=== PATIENT | male | born 1960 | race Asian ===

== ENCOUNTER 2018-04-01 13:43 | Inpatient (IN) | payer MEDICARE, MEDICAID ==
[2018-04-01] MEDS ORDERED: methylPREDNISolone SS 40 mg Vial IVP STA (14:02)
[2018-04-01 14:26] LABS: % BASOPHILS 0.1 % (0.0-2.0); % EOSINOPHILS 1.9 % (0.0-5.0); % LYMPHOCYTES 20.5 % (20.0-50.0); % MONOCYTES 8.5 % (2.0-10.0); EOSINOPHILE ABSOLUTE 0.1 Th/cmm (0.1-0.4); HEMATOCRIT 39.8 % (41.0-60); HEMOGLOBIN 13.1 gm/dL (12-16); LYMPHOCYTE ABSOLUTE 1.3 Th/cmm (1.5-3.0); MEAN CELL VOLUME 89.7 fl (80-99); MEAN CORPUSCULAR HEMOGLOBIN 29.6 pg (26.0-30.0); MEAN CORPUSCULAR HGB CONC 32.9 pg (28.0-36.0); MONOCYTE ABSOLUTE 0.5 Th/cmm (0.3-1.0); NEUTROPHILE ABSOLUTE 4.4 Th/cmm (1.8-8.0); PLATELET COUNT 234 Th/cmm (150-400); RED BLOOD COUNT 4.44 Mil/cmm (4.30-5.70); RED CELL DISTRIBUTION WIDTH 15.3 % (11.5-20.0); WHITE BLOOD COUNT 6.3 Th/cmm (4.8-10.8)
--- NOTE | 2018-04-01 14:44 | Diagnostic Imaging Report ---
Left hand 3 views Indication: Cellulitis, rule out foreign body Comparison: none Findings: There is diffuse soft tissue swelling. Moderate degenerative changes are noted with subchondral cystic changes of the metacarpal heads. Old triquetral fracture is noted. No gross erosions identified. Overlying wrapping material limits the exam. No gross radiopaque foreign body identified, however assessment of the thumb was noted on this exam. Impression: No gross radiopaque foreign body identified. Assessment of the thumb was limited due to overlying wrapping material. Please correlate clinically. Diffuse soft tissue swelling which may be due to cellulitis. No gross osseous erosions. If there is concern for osteomyelitis, MRI follow-up may be obtained. Old triquetral fracture. Degenerative changes. In the setting of trauma, if clinical symptoms persist and there is continued concern for an occult fracture, follow up exams in 5-7 days is suggested.
[2018-04-01 14:45] LABS: ALBUMIN 3.3 gm/dL (4.2-5.5); ALKALINE PHOSPHATASE 45 U/L (34-104); ANION GAP 10.2 (7.0-16.0); BILIRUBIN,TOTAL 0.2 mg/dL (0.3-1.0); BUN - UREA NITROGEN 21 mg/dL (7-25); CALCIUM SERUM 8.7 mg/dL (8.6-10.3); CHLORIDE 101 mEq/L (98-107); CREATININE - SERUM 0.9 mg/dL (0.7-1.3); GFR AFRICAN-AMERICAN > 60.0 ml/min (>90); GFR NON AFRICAN-AMERICAN > 60.0 ml/min; GLUCOSE 112 mg/dL (70-105); MAGNESIUM 2.4 mg/dL (1.9-2.7); PHOSPHOROUS 4.6 mg/dL (2.5-5.0); POTASSIUM SERUM 4.2 mEq/L (3.5-5.1); SGOT 22 U/L (13-39); SGPT/ALT 41 U/L (7-52); SODIUM SERUM 137 mEq/L (136-145); TOTAL PROTEIN,SERUM 6.5 gm/dL (6.0-8.3)
--- NOTE | 2018-04-01 14:45 | ED Physician Chart ---
ED Chief Complaint/HPI - Patient Information Date Seen:: 04/01/18 Time Seen:: 13:49 Chief Complaint:: L hand swelling History of Present Illness:: L hand swelling in a patient with no h/o trauma. Also, left hand erythema. Allergies:: Allergies Allergy/AdvReac Type Severity Reaction Status Date / Time No Known Allergies Allergy Verified 04/01/18 13:49 Vitals:: Vital Signs - 8 hr 04/01/18 13:49 Temp 98.3 F HR 73 RR 21 BP 115/47 O2 Sat % 96 Historian:: Medical Records Review:: Nurse's Note Reviewed, Transfer documents Reviewed ED Review of Systems - Review of Systems General/Constitutional: No fever, No chills, No weight loss, No weakness, No diaphoresis, No edema, No loss of appetite Skin: No skin lesions, No rash, No bruising Head: No headache, No light-headedness Eyes: No loss of vision, No pain, No diplopia ENT: No earache, No nasal drainage, No sore throat, No tinnitus Neck: No neck pain, No swelling, No thyromegaly, No stiffness, No mass noted Cardio Vascular: No chest pain, No palpitations, No PND, No orthopnea, No edema Pulmonary: No SOB, No cough, No sputum, No wheezing GI: No nausea, No vomiting, No diarrhea, No pain, No melena, No hematochezia, No constipation, No hematemesis G/U: No dysuria, No frequency, No hematuria Musculoskeletal: No bone or joint pain, No back pain, No muscle pain, Other ( left hand swelling and erythema) Endocrine: No polyuria, No polydipsia Psychiatric: No prior psych history, No depression, No anxiety, No suicidal ideation Hematopoietic: No bruising, No lymphadenopathy Allergic/Immuno: No urticaria, No angioedema Neurological: No syncope, No focal symptoms, No weakness, No paresthesia, No headache, No seizure, No dizziness, No confusion, No vertigo ED Past Medical History - Past Medical History Obtainable: No Past Medical History: Dyslipidemia, Seizures, Dementia, Other (intellectual disabilities; down Syndrome.) Family Medical History - Family Member Mother History Unknown: Yes ED Physical Exam - Physical Examination General/Constitutional: Awake Other Gen/Cons comments:: moaning and shouting occasional sounds. Head: Atraumatic Other Head comments:: microcephaly Eyes: Lids, conjuctiva normal, PERRL, EOMI Skin: Nl inspection, No rash, No skin lesions, No ecchymosis, Well hydrated, No lymphadenopathy ENMT: External ears, nose nl Other ENMT comments:: low set ears Neck: Nontender, No nuchal rigidity, No stridor Respiratory: Nl effort/Exclusion, Clear to Auscultation, No Wheeze/Rhonchi/Rales Cardio Vascular: RRR, No murmur, gallop, rubs, NL S1 S2 GI: No tenderness/rebounding/guarding, No organomegaly, No hernia, Normal BS's, Nondistended, No mass/bruits, No McBurney tenderness : No CVA tenderness Extremities: Normal digits & nails Other Extremities comments:: L hand swelling with erythema. no lymphangitis per se. no wound. NV intact No evidence of tenosynovitis. brachydactyly no lymphadenopathy. Neuro/Psych: Normal motor strength, Mood normal, No focal deficits Misc: Normal back, No paraspinal tenderness ED Labs/Radiology/EKG Results - Lab Results Results: Laboratory Tests 04/01/18 14:20 WBC 6.3 RBC 4.44 Hgb 13.1 Hct 39.8 L MCV 89.7 MCH 29.6 MCHC Differential 32.9 RDW 15.3 Plt Count 234 MPV 7.0 Neutrophils % 69.0 Lymphocytes % 20.5 Monocytes % 8.5 Eosinophils % 1.9 Basophils % 0.1 ED Assessment - Assessment General Assessment: left hand xray: soft tissue swelling. no foreign body (per my reading). sed rate finally came back. call to Dr. Dill at 4:56 p.m. answering service claimed that they called Dr. Dill two times. I was able to get Dr. Dill on his cell phone without any problem at 5:45 p.m. ED Septic Shock - . Is Septic Shock (SBP<90, OR Lactate>4 mmol\L) present?: No - <6hrs of presentation: Vital Signs: Vital Signs - 8 hr 04/01/18 13:49 Temp 98.3 F HR 73 RR 21 BP 115/47 O2 Sat % 96 ED Reassessment (Disposition) - Reassessment Reassessment Condition:: Unchanged - Diagnosis Diagnosis:: Left hand cellulitis. Down syndrome Intellectual disabilities. Dementia. - Patient Disposition Discharge/Transfer:: Acute Care w/in this hosp Admitted to:: Med/Surg Condition at Disposition:: Stable, Unchanged
[2018-04-01 16:34] LABS: ESR SEDIMENTATION SED RATE 50 mm/hr (0-20)
[2018-04-01] MEDS ORDERED: cefTRIAXone 1 GM in Sodium Chloride 0.9% 50 ML IV SCH (20:18)
[2018-04-01 21:36] VITALS: BP 137/71
[2018-04-01] MEDS ORDERED: Fleet Enema 135 mL RC PRN (22:03)
[2018-04-01] MEDS ORDERED: ALBUTEROL SULFATE IH PRN (22:03)
[2018-04-01] MEDS ORDERED: Non-Formulary Item 1 EA (Acetaminophen [Tylenol] 650 MG) PO PRN (22:03)
[2018-04-01] MEDS ORDERED: Magnesium Hydroxide (MOM) 30 mL UDC PO PRN (22:03)
[2018-04-01] MEDS: cefTRIAXone 1 GM in Sodium Chloride 0.9% 50 ML IV SCH (22:18)
[2018-04-02] MEDS ORDERED: Albuterol Nebulizer 2.5mg/3mL HHN PRN (07:56)
[2018-04-02] MEDS: Pantoprazole 40 mg EC Tab PO SCH (08:16)
[2018-04-02] MEDS: Multivitamin w/ Minerals Tab PO SCH (08:16)
[2018-04-02] MEDS: Vancomycin HCl 500 MG in Sodium Chloride 0.9% 100 ML IV SCH ×2 (08:46→21:43)
[2018-04-02] MEDS ORDERED: LAMOTRIGINE 200 MG PO SCH (09:00)
[2018-04-02] MEDS ORDERED: CARBOXYMETHYLCELLULOSE SODIUM OP SCH (09:00)
--- NOTE | 2018-04-02 18:13 | History & Physical ---
ADMIT DATE: 04/02/2018 HISTORY OF PRESENT ILLNESS: This is a 57-year-old male with past medical history of intellectual disability, who came in because of left hand erythema with edema. A few hours prior to admission, the patient was noted to have a left hand erythema with edema. There was no sign of any trauma or IV insertion. He was then brought to the Emergency Room. His white count was 6.3 with a temperature of 98.3 degrees. Left hand x-ray showed soft tissue swelling. He had no fever/chills. PAST MEDICAL HISTORY: 1. Intellectual disability. 2. Down syndrome. 3. Dementia without behavioral disturbance. 4. Hyperlipidemia. 5. Epilepsy. CURRENT MEDICATIONS: He is currently on acetaminophen, albuterol, bisacodyl, carboxymethylcellulose, ceftriaxone, donepezil, Lamictal, magnesium hydroxide, mirtazapine, multivitamins, pantoprazole, quetiapine fumarate, Flomax and vancomycin. ALLERGIES: No known drug allergies. SOCIAL AND FAMILY HISTORY: I was not able to obtain from the patient because he remains nonverbal. REVIEW OF SYSTEMS: Again, I was not able to decipher directly from the patient because of the same reason. PHYSICAL EXAMINATION: GENERAL: The patient is arousable, not in any form of distress, noncommunicative at the present time. VITAL SIGNS: His blood pressure is 119/42, pulse 68 and temperature 97.2 degrees. SKIN: Good turgor, warm, no rash nor jaundice appreciated. HEENT: Head normocephalic and atraumatic. Eyes: Extraocular muscles are intact. Pupils equal, round, reactive to light and accommodation. Anicteric sclerae. Pale conjunctivae. Nose: Midline nasal septum. Mouth: Moist mucosa. NECK: Supple, no adenopathy, no thyromegaly, no bruits. Trachea palpated in the midline. CHEST AND CARDIOVASCULAR: S1 and S2. No rub, murmur nor gallop appreciated. Point of maximal impulse. Fifth intercostal space, left midclavicular line. No abdominal or femoral bruits appreciated. LUNGS: Equal expansion. No use of accessory muscles. No supraclavicular retractions. Decreased breath sounds. Clear to auscultation without any wheeze. ABDOMEN: Mildly globular, soft. Positive for bowel sounds. No bruits either diastolic or systolic. RECTAL: Deferred. GENITOURINARY: Normal appearing male genitalia. MUSCULOSKELETAL: No effusions present in his joints, but unable to assess his range of motion. EXTREMITIES: He has a contracted bilateral lower extremity. No evidence of any edema, cyanosis nor clubbing with palpable femoral, but unable to fully appreciate popliteal and dorsalis pedis pulses. Left hand is edematous with erythema. No visible signs of trauma nor any IV insertion in the area. Hand is nontender on palpation and also not significantly warm. LABORATORY DATA: White count 6.3, hemoglobin 13.1, hematocrit 39.8, platelets 234, polys 69%. Sodium 137, potassium 4.2, chloride 101, bicarbonate 30, BUN 21, creatinine 0.9, glucose 112, calcium 6.7, phosphorus 4.6 and magnesium 2.4. IMPRESSION: 1. Left hand cellulitis. 2. Intellectual disability. 3. Down syndrome. 4. Dementia without behavioral disturbance. 5. Hyperlipidemia. 6. Epilepsy. PLAN: 1. Continue on with Rocephin and vancomycin. 2. Monitor progress of cellulitis. JOB# [id number]
[2018-04-02] MEDS: cefTRIAXone 1 GM in Sodium Chloride 0.9% 50 ML IV SCH (22:50)
[2018-04-03] MEDS: Pantoprazole 40 mg EC Tab PO SCH (06:34)
[2018-04-03] MEDS: Multivitamin w/ Minerals Tab PO SCH (08:01)
[2018-04-03] MEDS: Vancomycin HCl 500 MG in Sodium Chloride 0.9% 100 ML IV SCH ×2 (08:05→20:47)
--- NOTE | 2018-04-03 12:28 | General Progress Note ---
Subjective - Review of Systems Service Date: 04/03/18 Subjective: awake, non verbal Objective - Results Result Diagrams: 04/01/18 14:20 04/01/18 14:20 Recent Labs: Laboratory Last Values WBC 6.3 Th/cmm (4.8-10.8) 04/01/18 14:20 RBC 4.44 Mil/cmm (4.30-5.70) 04/01/18 14:20 Hgb 13.1 gm/dL (12-16) 04/01/18 14:20 Hct 39.8 % (41.0-60) L 04/01/18 14:20 MCV 89.7 fl (80-99) 04/01/18 14:20 MCH 29.6 pg (26.0-30.0) 04/01/18 14:20 MCHC Differential 32.9 pg (28.0-36.0) 04/01/18 14:20 RDW 15.3 % (11.5-20.0) 04/01/18 14:20 Plt Count 234 Th/cmm (150-400) 04/01/18 14:20 MPV 7.0 fl 04/01/18 14:20 Neutrophils % 69.0 % (40.0-80.0) 04/01/18 14:20 Lymphocytes % 20.5 % (20.0-50.0) 04/01/18 14:20 Monocytes % 8.5 % (2.0-10.0) 04/01/18 14:20 Eosinophils % 1.9 % (0.0-5.0) 04/01/18 14:20 Basophils % 0.1 % (0.0-2.0) 04/01/18 14:20 ESR 50 mm/hr (0-20) H 04/01/18 14:20 Sodium 137 mEq/L (136-145) 04/01/18 14:20 Potassium 4.2 mEq/L (3.5-5.1) 04/01/18 14:20 Chloride 101 mEq/L (98-107) 04/01/18 14:20 Carbon Dioxide 30.0 mEq/L (21.0-31.0) 04/01/18 14:20 Anion Gap 10.2 (7.0-16.0) 04/01/18 14:20 BUN 21 mg/dL (7-25) 04/01/18 14:20 Creatinine 0.9 mg/dL (0.7-1.3) 04/01/18 14:20 Est GFR ( Amer) > 60.0 ml/min (>90) 04/01/18 14:20 Est GFR (Non-Af Amer) > 60.0 ml/min 04/01/18 14:20 BUN/Creatinine Ratio 23.3 04/01/18 14:20 Glucose 112 mg/dL (70-105) H 04/01/18 14:20 Calcium 8.7 mg/dL (8.6-10.3) 04/01/18 14:20 Phosphorus 4.6 mg/dL (2.5-5.0) 04/01/18 14:20 Magnesium 2.4 mg/dL (1.9-2.7) 04/01/18 14:20 Total Bilirubin 0.2 mg/dL (0.3-1.0) L 04/01/18 14:20 AST 22 U/L (13-39) 04/01/18 14:20 ALT 41 U/L (7-52) 04/01/18 14:20 Alkaline Phosphatase 45 U/L (34-104) 04/01/18 14:20 Total Protein 6.5 gm/dL (6.0-8.3) 04/01/18 14:20 Albumin 3.3 gm/dL (4.2-5.5) L 04/01/18 14:20 Globulin 3.2 gm/dL 04/01/18 14:20 Albumin/Globulin Ratio 1.0 (1.0-1.8) 04/01/18 14:20 - Physical Exam Vitals and I&O: Vital Signs Temp 97.5 F 04/03/18 11:49 Pulse 59 04/03/18 11:49 Resp 18 04/03/18 11:49 BP 125/66 04/03/18 11:49 Pulse Ox 98 04/03/18 11:49 Intake & Output 04/02/18 04/03/18 04/03/18 18:59 06:59 18:59 Intake Total 1300 130 Balance 1300 130 Weight (lbs) 63.503 kg 64.864 kg Intake: Intake, IV Amount 100 100 Vancomycin HCl 500 mg In 100 100 Sodium Chloride 0.9% 100 ml @ 100 mls/hr IV Q12HR FOR[facility], [facility]–1983 Rx#:[id number] Oral 1200 30 Other: # Voids 4 2 # Bowel Movements 1 0 Weight Source Bedscale Estimated Active Medications: Current Medications Acetaminophen (Tylenol) 650 mg PO Q4HR PRN PRN Reason: Pain or Fever >101 Stop: 06/01/18 08:01 Last Admin: 04/03/18 08:01 Dose: 650 mg Albuterol Sulfate (Albuterol 2.5mg/3ml Neb Ud) 2.5 mg HHN Q6HRT PRN PRN Reason: Shortness of Breath Stop: 06/01/18 07:55 Bisacodyl (Dulcolax 10 Mg Supp) 10 mg RC Q96H PRN PRN Reason: MODERATE CONSTIPATION Stop: 05/31/18 22:02 Donepezil HCl (Aricept) 10 mg PO DAILY [facility], [facility]1983 Stop: 06/01/18 08:59 Last Admin: 04/03/18 08:01 Dose: 10 mg Ceftriaxone Sodium 1 gm/ (Sodium Chloride) 50 mls @ 100 mls/hr IV Q24H [facility], [facility]1983 Stop: 05/31/18 21:59 Last Admin: 04/02/18 22:50 Dose: 100 mls/hr Vancomycin HCl 500 mg/ Sodium (Chloride) 100 mls @ 100 mls/hr IV Q12HR [facility]1983 Stop: 06/01/18 08:59 Last Admin: 04/03/18 08:05 Dose: 100 mls/hr Lamotrigine (Lamictal) 200 mg PO BID [facility] Stop: 06/01/18 08:59 Last Admin: 04/03/18 08:01 Dose: 200 mg Magnesium Hydroxide (Milk Of Magnesia) 30 ml PO Q72H PRN PRN Reason: MILD CONSTIPATION Stop: 05/31/18 22:02 Mirtazapine (Remeron) 15 mg PO HS [facility], [facility]; Protocol Stop: 06/01/18 20:59 Last Admin: 04/02/18 20:19 Dose: 15 mg Miscellaneous (Vancomycin Iv Per Pharmacy) 1 ea MC PRN PRN PRN Reason: PROTOCOL Stop: 05/31/18 20:17 Pantoprazole Sodium (Protonix) 40 mg PO QDAC [facility], [facility]1983 Stop: 06/01/18 07:29 Last Admin: 04/03/18 06:34 Dose: 40 mg Quetiapine Fumarate (Seroquel) 100 mg PO HS [facility], [facility]; Protocol Stop: 06/01/18 20:59 Last Admin: 04/02/18 20:19 Dose: 100 mg Sodium Phosphate (Fleet Enema) 135 ml RC Q96H PRN PRN Reason: SEVERE CONSTIPATION Stop: 05/31/18 22:02 Tamsulosin HCl (Flomax) 0.4 mg PO DAILY [facility] Stop: 06/01/18 08:59 Last Admin: 04/03/18 08:01 Dose: 0.4 mg General: Alert HEENT: Atraumatic, Mucous membr. moist/pink Neck: Supple, +2 carotid pulse wo bruit Cardiovascular: Regular rate, Normal S1, Normal S2 Lungs: Clear to auscultation Abdomen: Bowel sounds, Soft Extremities: Edema, Other (left hand w/ erythema, nontender, not warm) Neurological: Sensation intact Skin: no Rash Psych/Mental Status: Mood NL Assessment/Plan - Problem List Patient Problems: All Active Problems LEFT HAND SWELLING (Acute) - Assessment Assessment: Left Hand Cellulitis Intellectual Disability Down Sydrome Dementia w/o behaviour disturbance Dyslipidemia Epilepsy - Plan Plan: Lab - Result Diagrams 04/01/18 14:20 04/01/18 14:20 Current Medications Acetaminophen (Tylenol) 650 mg PO Q4HR PRN PRN Reason: Pain or Fever >101 Stop: 06/01/18 08:01 Last Admin: 04/03/18 08:01 Dose: 650 mg Albuterol Sulfate (Albuterol 2.5mg/3ml Neb Ud) 2.5 mg HHN Q6HRT PRN PRN Reason: Shortness of Breath Stop: 06/01/18 07:55 Bisacodyl (Dulcolax 10 Mg Supp) 10 mg RC Q96H PRN PRN Reason: MODERATE CONSTIPATION Stop: 05/31/18 22:02 Donepezil HCl (Aricept) 10 mg PO DAILY [facility] Stop: 06/01/18 08:59 Last Admin: 04/03/18 08:01 Dose: 10 mg Ceftriaxone Sodium 1 gm/ (Sodium Chloride) 50 mls @ 100 mls/hr IV Q24H [facility] Stop: 05/31/18 21:59 Last Admin: 04/02/18 22:50 Dose: 100 mls/hr Vancomycin HCl 500 mg/ Sodium (Chloride) 100 mls @ 100 mls/hr IV Q12HR [facility] Stop: 06/01/18 08:59 Last Admin: 04/03/18 08:05 Dose: 100 mls/hr Lamotrigine (Lamictal) 200 mg PO BID [facility] Stop: 06/01/18 08:59 Last Admin: 04/03/18 08:01 Dose: 200 mg Magnesium Hydroxide (Milk Of Magnesia) 30 ml PO Q72H PRN PRN Reason: MILD CONSTIPATION Stop: 05/31/18 22:02 Mirtazapine (Remeron) 15 mg PO HS [facility], [facility]; Protocol Stop: 06/01/18 20:59 Last Admin: 04/02/18 20:19 Dose: 15 mg Miscellaneous (Vancomycin Iv Per Pharmacy) 1 ea MC PRN PRN PRN Reason: PROTOCOL Stop: 05/31/18 20:17 Pantoprazole Sodium (Protonix) 40 mg PO QDAC [facility] Stop: 06/01/18 07:29 Last Admin: 04/03/18 06:34 Dose: 40 mg Quetiapine Fumarate (Seroquel) 100 mg PO HS [facility], [facility]; Protocol Stop: 06/01/18 20:59 Last Admin: 04/02/18 20:19 Dose: 100 mg Sodium Phosphate (Fleet Enema) 135 ml RC Q96H PRN PRN Reason: SEVERE CONSTIPATION Stop: 05/31/18 22:02 Tamsulosin HCl (Flomax) 0.4 mg PO DAILY [facility] Stop: 06/01/18 08:59 Last Admin: 04/03/18 08:01 Dose: 0.4 mg Lab - Result Diagrams 04/01/18 14:20 04/01/18 14:20 still w/ edema, erythema left hand However, no fever; WBC stable continue Paul Howe
[2018-04-03] MEDS: cefTRIAXone 1 GM in Sodium Chloride 0.9% 50 ML IV SCH (22:39)
[2018-04-04] MEDS: Pantoprazole 40 mg EC Tab PO SCH (06:39)
[2018-04-04] MEDS: Multivitamin w/ Minerals Tab PO SCH (09:11)
[2018-04-04] MEDS ORDERED: Probiotic Screen MC PRN (09:15)
--- NOTE | 2018-04-04 12:13 | Discharge Summary ---
DATE OF DISCHARGE: 04/04/2018 ADMITTING DIAGNOSIS: Left hand cellulitis. SECONDARY DIAGNOSES: 1. Intellectual disability. 2. Down syndrome. 3. Dementia with behavioral disturbance. 4. History of hyperlipidemia. 5. History of epilepsy. DISCHARGE DIAGNOSIS: Left hand cellulitis - clinically improved. CONSULTANTS: There were no consultants used during this admission. PERTINENT FINDINGS: Left hand x-ray done on 04/01/2018 showed no gross foreign body identified. There was diffuse soft tissue swelling, which may be due to cellulitis. No gross osseous erosions. There was an old triquetral fracture. There were also degenerative changes noted. MAJOR PROCEDURES: None. BRIEF HOSPITAL COURSE: This is a 57-year-old gentleman with above-mentioned diagnoses, who presented to the ED after he was noted to have left hand redness and noticeable edema. There was no history of trauma or recent IV insertion. At the ER, his white count was noted to be 6.3 and an x-ray done showed no major abnormalities except diffuse soft tissue swelling as noted above. The patient was admitted to the Medical Surgical Floor and was placed on antibiotics (vancomycin and Rocephin) and was given supportive care with pain medications as needed. He was kept on his other medications as scheduled. Over the next 2 days, there was noticeable improvement of the redness and the swelling. The patient's vital signs have remained stable throughout his hospital stay. MEDICATIONS ON DISCHARGE: Clindamycin 300 mg t.i.d. x 10 days, ibuprofen 400 mg t.i.d. with meals x 10 days, Tylenol 650 q. 4 hours p.r.n. for pain, ProAir metered dose inhaler q. 6 hours p.r.n. for shortness of breath, Dulcolax 10 mg suppository q. 96 hours p.r.n. for constipation, artificial eye drops q.i.d. p.r.n., Aricept 10 mg q. day, Fleet enema 135 mL q. 96 hours p.r.n. for severe constipation, Lamictal 200 mg b.i.d., milk of magnesia 30 mL q. 72 hours p.r.n., Remeron 15 mg at bedtime, multivitamins and minerals 1 tab q. daily, omeprazole 20 q. daily, Seroquel 100 mg at bedtime, Flomax 0.4 q. daily. DISPOSITION: The patient was discharged back to [facility] under the care of Dr. Richardson. JOB# [id number]
[2018-04-05] MEDS ORDERED: Lactobacillus Rhamnosus GG 15 Billion CFU CAP.SPRINK PO SCH (09:00)
== END 2018-04-04 14:16 | DRG 602 ==
LOC: ER 13:43 → MSI 17:53 → UNDODISIN 20:17
PROVIDERS: ADMIT Internal Medicine; ATTEND Internal Medicine
DX: L03.114 Cellulitis of left upper limb (principal); R53.2 Functional quadriplegia; F03.91 Unspecified dementia, unspecified severity, with behavioral disturbance; F79 Unspecified intellectual disabilities; G40.909 Epilepsy, unspecified, not intractable, without status epilepticus; Q90.9 Down syndrome, unspecified; E78.5 Hyperlipidemia, unspecified
CPT/HCPCS: 36415-UA; 73130-TC-LT; 80053-TC; 80202-TC; 83735-TC; 84100-TC; 85025-TC; 85652-TC; 96375; J0696; J2930; J3370; J7030; J7040; Z7610